=== PATIENT | male | born 1955 | race African-American/Black ===

== ENCOUNTER 2018-02-27 13:39 | Inpatient (IN) | payer MEDICARE, OTHER ==
[2018-02-27 14:25] LABS: Hemoglobin 14.6 g/dL (14.0-18.0); Mean Corpuscular HGB CONC 30.9 g/dL (32.0-36.0); Mean Corpuscular Hemoglobin 22.8 pg (27.0-31.0); Mean Corpuscular Volume 73.7 fl (80.0-94.0); Mean Platelet Volume 8.5 fL (7.4-10.4); Platelet Count 197 thou/uL (130-400); RBC Distribution Width 12.6 % (11.5-14.5); Red Blood Cell (RBC) Count 6.42 mill/uL (4.70-6.10)
[2018-02-27] MEDS ORDERED: Lorazepam 2 MG/ML VIAL ONE ×4 (14:29→17:13)
[2018-02-27 14:42] LABS: ALT (SGPT) 10 U/L (8-55); AST (SGOT) 21 U/L (5-34); Albumin 3.8 g/dL (3.4-4.8); Alkaline Phosphatase 138 U/L (40-150); Anion Gap 14 mmol/L (10-20); BUN (Urea Nitrogen) 10 mg/dL (8.4-25.7); Bilirubin, Total 1.2 mg/dL (0.2-1.2); Calc. Creatinine Clearance 0 mL/min (70-130); Calcium 10.5 mg/dL (7.8-10.44); Carbon Dioxide 22 mmol/L (23-31); Chloride 107 mmol/L (98-107); Estimated GFR-MDRD Greater than 90; Globulin 3.4 g/dL (2.4-3.5); Glucose 95 mg/dL (80-115); Lipase 10 U/L (8-78); Magnesium 1.4 mg/dL (1.6-2.6); Potassium 3.8 mmol/L (3.5-5.1); Protein, Total 7.2 g/dL (5.8-8.1); Sodium 139 mmol/L (136-145)
[2018-02-27 14:44] LABS: Eosinophils 1 % (0-10); Hypochromia SLIGHT = 6-15 cells (100X) (0-5/hpf); Lymphocytes 22 % (21-51); MDiff Complete? YES; Microcytosis SLIGHT = 6-15 cells (100X) (0-5/hpf); Monocytes 9 % (0-10); Neutrophil 68 % (42-75); Ovalocytes SLIGHT = 2-5 cells (100X) (0-1/hpf); PLT Morphology Comment Appears Adequate; Polychromasia SLIGHT = 2-3 cells (100X) (0-2/hpf); Target Cells SLIGHT = 2-5 cells (100X) (0-1/hpf)
[2018-02-27 14:56] LABS: CKMB 1.7 ng/mL (0-6.6); Troponin I 0.028 ng/mL (< 0.028)
--- NOTE | 2018-02-27 15:00 | RAD ---
PORTABLE CHEST: History: Chest pain, weakness. Comparison: 04-18-14 FINDINGS: Heart size appears borderline for portable technique. The lungs are clear of any focal infiltrative p rocess. IMPRESSION: Borderline heart size. No acute process. POS: [facility]
[2018-02-27] MEDS ORDERED: Magnesium Sulfate 2 GM/100 ML BAG ONE (15:11)
[2018-02-27] MEDS ORDERED: Diltiazem HCl 125 MG, Admixture Fee 1 EACH in Sodium Chloride 0.9% 100 ML IVPB SCH (17:15)
[2018-02-27] MEDS ORDERED: Albuterol Sulfate 2.5 mg/0.5 ml Neb ONE (17:36)
--- NOTE | 2018-02-27 19:52 | PDOC.FPRHP ---
- History of Present Illness Chief Complaint: unable to obtain History of Present Illness: Resident: Zeina Watkins DO PCP: unknown, CC Patient is a 62yo M with unknown PMH presented to the ED after using cocaine yesterday. History is limited due to patients sedation and limited info from ED. Apparently, patient is trying to become sober from drugs and distant family members are helping him with this. When he arrived to the ED, patient's HR was in the 130's and was given Ativan and IVF, which did not change the HR, actually HR escalated into the 270's over some time. Patient was cardioverted and placed on a diltiazem drip. Patient is s/p 5mg Ativan and is unable to answer questions at this time. ED Course: As discussed above, patient was carrdioverted and placed on diltiazem drip, going in at 10mg/hr at the time of evaluation. He was also given 1L NS, 2gm of Mg, and an albuterol neb. - Allergies/Adverse Reactions Allergies Allergy/AdvReac Type Severity Reaction Status Date / Time No Known Allergies Allergy Verified 02/27/18 22:11 - Home Medications Comments: unknown - History PMHx: HTN HLD Schizophrenia Substance Abuse ? Afib PSHx: unk FHx: unk Social: Patient uses tobacco and cocaine. Unable to determine other social hx. - Review of Systems ROS unobtainable: due to mental status - Vital signs BP: 127/90 HR: 89 RR: 24 Tmax: 98.5 Pox: 100% on RA Wt: 68kg - Physical Exam -Constitutional: drowsy, sedated HEENT: no scleral icterus -HEENT: pinpoint pupils Neck: no LAD Heart: normal S1/S2 -Heart: tachycardia, irregularly irregular Lungs: CTAB, no respiratory distress -Lungs: shallow respirations, unable to auscultate with full air movement Abdomen: soft, non-tender, bowel sounds present Musculoskeletal: normal structure, normal tone -Neurological: GCS 8 (eye-1, verbal-2, motor-5) Skin: no rash/lesions, good turgor Heme/Lymphatic: no unusual bruising or bleeding, no purpura, no petechia FMR H&P: Results - Labs Result Diagrams: 02/27/18 14:16 02/27/18 14:16 Lab results: WBC 6.0 thou/uL (4.8-10.8) 02/27/18 14:16 Hgb 14.6 g/dL (14.0-18.0) 02/27/18 14:16 Hct 47.3 % (42.0-52.0) 02/27/18 14:16 MCV 73.7 fl (80.0-94.0) L 02/27/18 14:16 Plt Count 197 thou/uL (130-400) 02/27/18 14:16 Sodium 139 mmol/L (136-145) 02/27/18 14:16 Potassium 3.8 mmol/L (3.5-5.1) 02/27/18 14:16 Chloride 107 mmol/L (98-107) 02/27/18 14:16 Carbon Dioxide 22 mmol/L (23-31) L 02/27/18 14:16 BUN 10 mg/dL (8.4-25.7) 02/27/18 14:16 Creatinine 0.74 mg/dL (0.6-1.3) 02/27/18 14:16 Glucose 95 mg/dL (80-115) 02/27/18 14:16 Calcium 10.5 mg/dL (7.8-10.44) H 02/27/18 14:16 Total Bilirubin 1.2 mg/dL (0.2-1.2) 02/27/18 14:16 AST 21 U/L (5-34) 02/27/18 14:16 ALT 10 U/L (8-55) 02/27/18 14:16 Alkaline Phosphatase 138 U/L (40-150) 02/27/18 14:16 CK-MB (CK-2) 1.7 ng/mL (0-6.6) 02/27/18 14:16 Serum Total Protein 7.2 g/dL (5.8-8.1) 02/27/18 14:16 Albumin 3.8 g/dL (3.4-4.8) 02/27/18 14:16 Lipase 10 U/L (8-78) 02/27/18 14:16 - EKG Interpretation EKG: initial EKG Aflutter with rate of 130's second EKG with Aflutter vs SVT with rate of 230's third EKG with Afib with rate of 140's - Radiology Interpretation Chest x-ray Status: image reviewed by me, report reviewed by me Additional comment: borderline heart size, no acute findings FMR H&P: A/P - Problem List (1) Atrial fibrillation with RVR Current Visit: Yes Status: Acute Code(s): I48.91 - UNSPECIFIED ATRIAL FIBRILLATION (2) Cocaine abuse Current Visit: Yes Status: Acute Code(s): F14.10 - COCAINE ABUSE, UNCOMPLICATED (3) Hypomagnesemia Current Visit: Yes Status: Acute Code(s): E83.42 - HYPOMAGNESEMIA (4) Hypercalcemia Current Visit: Yes Status: Acute Code(s): E83.52 - HYPERCALCEMIA (5) Low TSH level Current Visit: Yes Status: Acute Code(s): R79.89 - OTHER SPECIFIED ABNORMAL FINDINGS OF BLOOD CHEMISTRY (6) Tobacco abuse Current Visit: Yes Status: Acute Code(s): Z72.0 - TOBACCO USE (7) Hypertension Current Visit: Yes Status: Acute Code(s): I10 - ESSENTIAL (PRIMARY) HYPERTENSION (8) Hyperlipidemia Current Visit: Yes Status: Acute Code(s): E78.5 - HYPERLIPIDEMIA, UNSPECIFIED (9) Schizophrenia Current Visit: Yes Status: Acute Code(s): F20.9 - SCHIZOPHRENIA, UNSPECIFIED (10) Microcytosis Current Visit: Yes Status: Acute Code(s): R71.8 - OTHER ABNORMALITY OF RED BLOOD CELLS - Plan Afib with RVR - s/p cardioversion in ED. Currently pulse rate between high 80's to 100's on diltiazem drip. Admit to IMCU on telemetry. - hx is limited due to patients sedation with Ativan, GCS 8 - per family member, had an old medication list from 2016 that mentioned warfarin, so likely this is a chronic problem - Coags pending - Place on therapeutic lovenox and bridge to Warfarin, unknown hx, unable to calculate [id number] or HASBLED - cause could by hyperthyroidism vs cocaine intoxication, will obtain more hx when patient wakes up some Cocaine Abuse - UDS pending - CM consult Hypercalcemia - urine Ca pending - repeat tomorrow - consider PTH Hypomagnesemia - s/p 2g in ED - will recheck in AM and replace if needed - Phos pending Microcytosis - no anemia at this time - smear shows hypochromia with target cells, microcytosis, and ovalocytes - unknown cause, continue to monitor Low TSH - free T4 pending - unknown history, will get more information once patient is more alert to provide history Hx of Schizophrenia - no medication history that i'm able to obtain - will discuss with patient once more alert - continue to monitor for s/sx HTN - per history has HTN - no record of current medications - continue to monitor for s/sx HLD - as above VTE PPx: therapuetic lovenox GI PPx: none Code Status: Full Disposition/LOS: Likely >48h for warfarin bridging and further workup. FMR H&P: Upper Level - Pertinent history Pt is a 62 yo BM w/ PMH of cocaine abuse, presumably afib due to reported hx of coumadin use, htn, hld who presents to ED with elevated heart rate per ED BARGE MASTER. Pt is completely sedated at time of our exam and AOx0, only mumbles doesn't answer any questions. Reported that he had used used cocaine this morning. Initially found to be in 2:1 aflutter with RVR and during time in ED HR climbed to 238 in a difficult to read rhythm possible aflutter vs SVT, pt was cardioverted after administration of ativan. Post conversion EKG shows afib with RVR rate of 143. Pt was then started on a dilt gtt @ a rate of 10 and HR now in 90s. - Pertinent findings Gen: AOx0, sedated, VSS, mumbles, not easily arousable HEENT: mildly dry mm Cards: irregularly irregular Lungs: CTA Abdomen: non TTP, no distension, no guarding or peritoneal signs Skin: no rashes - Plan Date/Time: 02/27/181951 ISocorro, have evaluated this patient and agree with findings/plan as outlined by Dr. Watkins. Pertinent changes/additions are listed here. PCP: unknown CC 1. afib with RVR s/p cardioversion: admit IMCU, dilt gtt, th. lovenox, coags-- not sure if he was taking his coumadin, will need more hx about his cardiac hx when he is awake in terms of recent cath, hx of CAD, hx of chronic or pAF 2. cocaine abuse-tele monitoring, given ativan, will watch HR, UDS ordered and pending 3. hx of schizophrenia-dont have med list, not sure if he is on anything 4. htn-same 5. hld-same 6. DVT ppx-covered with Th. justox Attending Addendum - Attending Addendum Date/Time: 02/28/18 0358 I personally evaluated the patient and discussed the management with Dr. Watkins and Deangelo. I agree with the History, Examination, Assessment and Plan documented above with any addition or exceptions noted below.
[2018-02-27] MEDS ORDERED: Albuterol Sulfate 2.5 mg/3 ml Neb NEB PRN (19:56)
[2018-02-27] MEDS ORDERED: Ondansetron ODT 4 MG TAB PO PRN (20:14)
[2018-02-27] MEDS ORDERED: Acetaminophen 325 MG TAB PO PRN (20:14)
[2018-02-27] MEDS ORDERED: Enoxaparin Sodium 60 MG/0.6 ML SYRINGE SC SCH (21:00)
[2018-02-27 21:16] LABS: Troponin I 0.028 ng/mL (< 0.028)
[2018-02-27] MEDS: Sodium Chloride 0.9% 1,000 ML IV SCH (21:45)
[2018-02-27 21:55] LABS: INR-International Normal Ratio 1.1; PTT 28.9 SEC (22.9-36.1); Prothrombin Time 14.5 SEC (12.0-14.7)
--- NOTE | 2018-02-27 22:00 | PDOC.EVN ---
Event Note - Event Note Event Note: Date/Time: 02/27/18 6410 I personally evaluated the patient and discussed the management with Drs. Watkins and Deangelo. I agree with the History, Examination, Assessment and Plan. See H&P.
[2018-02-28] MEDS: Diltiazem 125 MG in Sodium Chloride 0.9% 100 ML IVPB SCH (02:01)
[2018-02-28 05:20] LABS: #Basophils 0.1 thou/uL (0.0-0.2); #Lymphocytes 1.5 thou/uL (1.20-3.40); #Monocytes 0.8 thou/uL (0.11-0.59); #Neutrophils 5.2 thou/uL (1.40-6.50); %Basophils 0.7 % (0.0-1.0); %Eosinophils 0.1 % (0.0-10.0); %Lymphocytes 19.9 % (21.0-51.0); %Monocytes 10.9 % (0.0-10.0); %Neutrophils 68.4 % (42.0-75.0); Mean Corpuscular HGB CONC 32.3 g/dL (32.0-36.0); Mean Corpuscular Hemoglobin 23.5 pg (27.0-31.0); Mean Corpuscular Volume 72.9 fL (78.0-98.0); Platelet Count 219 thou/uL (130-400); RBC Distribution Width 12.6 % (11.5-14.5); Red Blood Cell (RBC) Count 5.09 mill/uL (4.70-6.10); White Blood Cell (WBC) Count 7.6 thou/uL (4.8-10.8)
[2018-02-28 05:39] LABS: Anion Gap 14 mmol/L (10-20); BUN (Urea Nitrogen) 8 mg/dL (8.4-25.7); Calc. Creatinine Clearance 110 mL/min (70-130); Calcium 9.7 mg/dL (7.8-10.44); Carbon Dioxide 18 mmol/L (23-31); Cardiac Risk 3.8 (Less than 4.5); Chloride 112 mmol/L (98-107); Cholesterol 100 mg/dl (< 200 Desired); Estimated GFR-MDRD Greater than 90; Glucose 94 mg/dL (80-115); HDL Cholesterol 26 mg/dL (>60 Neg Risk); LDL Cholesterol, Calculated 63 mg/dL; Magnesium 1.5 mg/dL (1.6-2.6); Potassium 3.9 mmol/L (3.5-5.1); Sodium 140 mmol/L (136-145); Triglycerides 53 mg/dL (Less than 150)
[2018-02-28] MEDS: Sodium Chloride 0.9% 1,000 ML IV SCH (05:59)
--- NOTE | 2018-02-28 08:10 | PDOC.FM ---
- Subjective Subjective: 62 yo M who was admitted after being found to be in afib with RVR now NSR on dilt drip. There is very little history about this case dt lack of family/ friends and patient's ability to answer questions after being given ativan. This morning he is found to be sleeping comfortably. He will intermittently answer questions. He denies any concerns. Per nursing, he has been very agitated , is pulling at his lines and monitors, and is being generally non compliant. - Objective MAR Reviewed: Yes Vital Signs & Weight: Vital Signs (12 hours) Temp Pulse Resp BP Pulse Ox 02/28/18 07:32 99.0 F 88 18 97 02/28/18 03:48 99.0 F 104 H 18 169/90 H 98 02/28/18 00:00 98.6 F 100 19 172/91 H 97 Weight Weight 67.188 kg I&O: 02/27/18 02/28/18 03/01/18 06:59 06:59 06:59 Intake Total 1120 Balance 1120 Result Diagrams: 02/28/18 04:48 02/28/18 04:48 <Harshil Edgar - Last Filed: 02/28/18 07:56> - Objective Vital Signs & Weight: Vital Signs (12 hours) Temp Pulse Resp BP Pulse Ox 02/28/18 11:49 98.4 F 117 H 34 H 188/99 H 02/28/18 11:30 112 H 02/28/18 07:32 99.0 F 88 18 97 02/28/18 03:48 99.0 F 104 H 18 169/90 H 98 Weight Weight 67.188 kg I&O: 02/27/18 02/28/18 03/01/18 06:59 06:59 06:59 Intake Total 1120 Balance 1120 Result Diagrams: 02/28/18 04:48 02/28/18 04:48 <Debra Gill - Last Filed: 02/28/18 12:08> Phys Exam - Physical Examination Constitutional: NAD HEENT: moist MMs, sclera anicteric Neck: no JVD Respiratory: clear to auscultation bilateral Cardiovascular: RRR Non radiating 3/6 systolic murmur heard best over R sternal border Gastrointestinal: soft, non-tender, no distention, positive bowel sounds Musculoskeletal: no edema Neurological: moves all 4 limbs Deviation from normal: Will not answer most questions, sedated dt ativan Skin: no rash, normal turgor <Harshil Edgar - Last Filed: 02/28/18 07:56> Dx/Plan (1) Atrial fibrillation with RVR Code(s): I48.91 - UNSPECIFIED ATRIAL FIBRILLATION Status: Acute (2) Cocaine abuse Code(s): F14.10 - COCAINE ABUSE, UNCOMPLICATED Status: Acute (3) Hypercalcemia Code(s): E83.52 - HYPERCALCEMIA Status: Acute (4) Hyperlipidemia Code(s): E78.5 - HYPERLIPIDEMIA, UNSPECIFIED Status: Acute (5) Hypertension Code(s): I10 - ESSENTIAL (PRIMARY) HYPERTENSION Status: Acute (6) Hypomagnesemia Code(s): E83.42 - HYPOMAGNESEMIA Status: Acute (7) Low TSH level Code(s): R79.89 - OTHER SPECIFIED ABNORMAL FINDINGS OF BLOOD CHEMISTRY Status : Acute (8) Microcytosis Code(s): R71.8 - OTHER ABNORMALITY OF RED BLOOD CELLS Status: Acute (9) Schizophrenia Code(s): F20.9 - SCHIZOPHRENIA, UNSPECIFIED Status: Acute (10) Tobacco abuse Code(s): Z72.0 - TOBACCO USE Status: Acute (11) Systolic murmur Code(s): R01.1 - CARDIAC MURMUR, UNSPECIFIED Status: Acute - Plan Plan: Afib with RVR - s/p cardioversion in ED. Currently pulse rate between high 80's to 100's on diltiazem drip. Currently at 5 mg/hr - history is still unclear, will attempt to find family today. Will also limit sedative use today in to get more information from pt. - per family member, had an old medication list from 2016 that mentioned warfarin, so likely this is a chronic problem. INR is 1.1, thus likely he is not taking it currently - Place on therapeutic lovenox and bridge to Warfarin, unknown hx, unable to calculate [id number] or HASBLED - likely caused by both hyperthyroid and cocaine intoxication. Free T4 4.1, UDS pending Systolic murmur - unclear if this is new or old. When pt wakes up more, will get more history and consider further work up at that time Cocaine Abuse - UDS pending - CM consult Hypercalcemia - improved this morning - urine Ca pending - repeat tomorrow - consider PTH based on urine study Hypomagnesemia - s/p 2g in ED. giving one more this am - repeat tomorrow - Phos WNL Microcytic anemia - unclear if dilutional or if value on admission was concentration - order Fe studies - smear shows hypochromia with target cells, microcytosis, and ovalocytes - unknown cause, continue to monitor Low TSH - free T4 4.1 - unknown history, will get more information once patient is more alert to provide history Hx of Schizophrenia, per ER - will discuss with patient once more alert - continue to monitor for s/sx HTN - per history in ED has HTN - no record of current medications - continue to monitor for s/sx HLD - as above Dispo: currently stable. Work to move to IV rate control when pt is more awake. Likely LOS 1-2 days <Harshil Edgar - Last Filed: 02/28/18 07:56> Attending Addendum - Attending Addendum Date/Time: 02/28/18 1202 I personally evaluated the patient and discussed the management with Dr. Mcgovern and Dr. Edgar I agree with the History, Examination, Assessment and Plan documented above with any addition or exceptions noted below. 62 yo male with unknown history admitted for cocaine toxicosis and A. fib with RVR Patient cardioverted in ER. Now on CCB drip. Will contact cards this AM. Symptomatic treatment for cocaine tox. Significant effects to cardiovascular system still at great risk. Unsure if patient has primary hyperthyroidism or has history of A. fib and was potientially on amiodarone. Will follow up with family or pharmacy. Check [facility]. ABrayMD <Debra Gill - Last Filed: 02/28/18 12:08>
[2018-02-28] MEDS ORDERED: Enoxaparin Sodium 80 MG/0.8 ML SYRINGE SC SCH (09:00)
[2018-02-28] MEDS ORDERED: Enoxaparin Sodium 40 MG/0.4 ML SYRINGE SC SCH (09:00)
[2018-02-28 09:14] LABS: Iron 25 ug/dL (65-175); Iron Binding Capacity, Total 180 mcg/dL (261-462)
[2018-02-28] MEDS ORDERED: Digoxin 0.5 MG/2 ML AMP SLOW IVP SCH (10:30)
[2018-02-28] MEDS ORDERED: Ziprasidone 20 MG VIAL IM PRN (10:59)
[2018-02-28] MEDS ORDERED: Sterile Water 10 ML VIAL FS PRN (11:09)
[2018-02-28] MEDS: Haloperidol Lactate 5 MG/ML VIAL SLOW IVP PRN ×2 (12:41→17:03)
[2018-02-28] MEDS ORDERED: hydrOXYzine 25 MG TAB PO PRN (17:47)
[2018-02-28] MEDS ORDERED: Methocarbamol 500 MG TAB PO PRN (17:47)
[2018-02-28] MEDS ORDERED: (Sildenafil Citrate [Viagra] 100 MG) PO PRN (17:47)
[2018-02-28] MEDS ORDERED: PROVENTIL INHALER 6.7 G (200 INHALATIONS) INH PRN (17:47)
--- NOTE | 2018-02-28 19:13 | CON ---
DATE OF CONSULTATION: 02/28/2018 HISTORY OF PRESENT ILLNESS: Tony Bradley is a very irritable 62-year-old gentleman. I was able to interview him for a short period of time, but really does not want to be talk to. He has a long history apparently of schizophrenia , according to family, as well as medical noncompliance. Family member called and says that he continues to smoke cocaine with some people that live in his neighborhood and then once he starts smoking cocaine, he gives them his money. I believe, the sister that plans on trying to take care of him, although I am not sure he is going to be open to this. Apparently, he presented with rapid atrial fibrillation. He did receive cardioversion in the ER, although it is unknown how long he has been in this rhythm. He also received either 5 or 6 mg of Ativan in the emergency department. PAST MEDICAL HISTORY: Remarkable for hypertension, schizophrenia, ?atrial fibrillation. FAMILY HISTORY: Negative for lung disease in early age. REVIEW OF SYSTEMS: Not obtainable because of his lack of cooperation. He has pulled out 4 or 5 IVs since he was admitted. PHYSICAL EXAMINATION: VITAL SIGNS: He is afebrile, heart rates in the 120s and I saw him earlier it is down to the 110s now. His respiratory rate is in the 20s to 30s. His room air oximetry is 97. Blood pressure is 169/90 earlier this morning 188/99 just before lunch. LUNGS: Clear. HEART: Irregularly irregular. No murmurs heard. ABDOMEN: Soft and nontender. EXTREMITIES: Without asymmetry. He has a foam tape over his IV in his left upper extremity to hopefully keep him from pulling out his IV. LABORATORY DATA: His white count is 7.6, hemoglobin 12.0, platelets 219. Sodium 140, potassium 3.9, chloride 112, bicarbonate 18, BUN 8, creatinine 0.66. Given his history of schizophrenia, he may benefit from some IV Haldol to calm him down. This was ordered. He will not tolerate an IM injection and likely a nurse will end up getting stuck with a needle, so this will be given intravenously. We will start him on every 6 hours p.o. Cardizem and I have given him 0.5 mg of digoxin IV. Hopefully, we can get him off his Cardizem drip and get him into his sister's custody if she is willing to take care of him. Really should have schizophrenia treated with some type of Depo injection if he can be confirmed he truly does have a history of schizophrenia. [facility] consultation may be helpful. I will be happy to follow with the other physician's caring for him. This is a 50-minute consult greater than 50% of the time was spent in coordinating care. THANH
[2018-02-28] MEDS ORDERED: Acetaminophen 650 MG in Premix Bag 1 BAG IVPB PRN (19:26)
--- NOTE | 2018-02-28 21:19 | CON ---
DATE OF CONSULTATION: 02/28/2018 PRIMARY WEB SITE MANAGER: Dr. Roosevelt Bragg. REASON FOR CONSULTATION: Atrial flutter and atrial fibrillation. HISTORY OF PRESENT ILLNESS: Mr. Tony Bradley is a 62-year-old man. The patient has a history of va lvular heart disease as well as substance abuse, admitted to the hospital yesterday after using cocai ne. The patient is unable to give a reliable history. According to the notes, the patient also has problem with severe tachycardia, heart rate (01:02 ). He was cardioverted and placed on diltiazem drip. He also required Ativan and Haldol. REVIEW OF SYSTEMS: Not reliable as he is currently sedated. He is not cooperative and required bianca tion and the patient is stating he is about to leave. The patient has a history of atrial flutter an d atrial fibrillation and in the past has been on Coumadin. RISK FACTORS: 1. Dyslipidemia. 2. Family history of coronary artery disease. 3. Type 2 diabetes. 4. Hypertension. 5. Former tobacco abuse. Also, history of cocaine abuse. 6. Patient has a history of atrial flutter ablation in 2009. CURRENT MEDICATIONS: He was on intravenous Cardizem, but he will not allow that to be continued. He is on oral Cardizem. He has taken intermittently. PHYSICAL EXAMINATION: GENERAL: This is a 62-year-old man currently sedated. VITAL SIGNS: Blood pressure 188/99, pulse of 117, irregular. LUNGS: Clear. CARDIAC: Irregularly irregular. He has a 3/6 holosystolic murmur at the apex. ABDOMEN: Soft, nontender. EXTREMITIES: There is no clubbing, no cyanosis or edema. PSYCHIATRIC: Sedated. LABORATORY AND X-RAY FINDINGS: Hemoglobin is 12. INR is 1.1. The patient did have episode of atria l flutter with a rapid ventricular response, rate of 238 yesterday. Most recent ejection fraction 40 to 45%, left ventricular hypertrophy, severe mitral regurgitation. ASSESSMENT: 1. Severe mitral regurgitation. 2. Substance abuse. 3. Noncompliance. 4. Cocaine abuse. 5. Recurrent atrial arrhythmias. PLAN: Unfortunately, the patient's prognosis appears poor as he is not cooperative with medical ther apy. It has been mentioned that was referred at one point for bypass and valve repair, but did not s how up for that. The patient is not a candidate for anticoagulations with severe noncompliance. The risk of anticoagulation would be very high. I would recommend giving him Cardizem-CD 180 mg a day i f he leaves against medical advice. If he stays in the hospital, I would recommend electrophysiologic evaluation by Dr. Fox to see [facility] pascual atrial flutter ablation could be considered.
[2018-02-28] MEDS: Pravastatin Sodium 20 MG TAB PO SCH (21:40)
[2018-02-28] MEDS: Ferrous Sulfate 325 MG TAB PO SCH (21:40)
[2018-03-01] MEDS ORDERED: Diazepam 5 MG TAB PO PRN (00:46)
[2018-03-01] MEDS ORDERED: Diazepam 5 MG TAB PO SCH (01:00)
[2018-03-01] MEDS ORDERED: Thiamine HCl 200 MG/2 ML VIAL IM SCH (01:00)
[2018-03-01] MEDS: Diltiazem 125 MG in Sodium Chloride 0.9% 100 ML IVPB SCH (03:19)
[2018-03-01 05:30] LABS: #Lymphocytes 1.4 thou/uL (1.20-3.40); #Monocytes 0.9 thou/uL (0.11-0.59); #Neutrophils 4.6 thou/uL (1.40-6.50); %Eosinophils 0.6 % (0.0-10.0); %Lymphocytes 20.6 % (21.0-51.0); %Neutrophils 65.9 % (42.0-75.0); Hemoglobin 11.4 g/dL (14.0-18.0); Mean Corpuscular HGB CONC 31.5 g/dL (32.0-36.0); Mean Corpuscular Hemoglobin 23.2 pg (27.0-31.0); Mean Corpuscular Volume 73.6 fL (78.0-98.0); Mean Platelet Volume 8.8 fL (7.4-10.4); Platelet Count 169 thou/uL (130-400); RBC Distribution Width 12.6 % (11.5-14.5); Red Blood Cell (RBC) Count 4.91 mill/uL (4.70-6.10); White Blood Cell (WBC) Count 6.9 thou/uL (4.8-10.8)
[2018-03-01 05:36] LABS: Anion Gap 16 mmol/L (10-20); BUN (Urea Nitrogen) 9 mg/dL (8.4-25.7); Calc. Creatinine Clearance 125 mL/min (70-130); Calcium 9.5 mg/dL (7.8-10.44); Carbon Dioxide 17 mmol/L (23-31); Chloride 113 mmol/L (98-107); Estimated GFR-MDRD Greater than 90; Glucose 71 mg/dL (80-115); Potassium 3.7 mmol/L (3.5-5.1); Sodium 142 mmol/L (136-145)
[2018-03-01 06:14] LABS: Bilirubin Negative (Negative); Blood, Urine Negative (Negative); Clarity CLEAR (Clear); Glucose, Urine (Dipstick) Negative (Negative); Leukocyte Negative (Negative); Nitrite Negative (Negative); Protein, Urine (Dipstick) Trace mg/dL (Neg-Trace); Specific Gravity, Urine 1.021 (1.002-1.036); pH, Urine 5.5 (5.0-9.0)
[2018-03-01 06:25] LABS: Amphetamine Not Detected (NotDetected); Barbiturates Screen Not Detected (NotDetected); Benzodiazepine Screen Detected (NotDetected); Cocaine Metabolite Screen Detected (NotDetected); Medtox Control Line Valid? VALID (VALID); Medtox Reader # READER 4; Methadone Not Detected (NotDetected); Methamphetamine Not Detected (NotDetected); Opiate Screen Not Detected (NotDetected); Oxycodone Screen Not Detected (NotDetected); Phencyclidine (PCP) Not Detected (NotDetected); THC/Cannabinoid Screen Detected (NotDetected); Tricyclic Screen Not Detected (NotDetected)
--- NOTE | 2018-03-01 08:28 | PDOC.FM ---
- Subjective Subjective: 62 yo M here for afib/flutter. Rate is controlled on cardizem drip. Hospitalization has been complicated by uncontrolled schizophrenia. He is has been very non compliant and is refusing all PO meds. Over night pt slept well with no issues per nursing after receiving dose of haldol. This morning pt was asleep and would not answer questions. - Objective MAR Reviewed: Yes Vital Signs & Weight: Vital Signs (12 hours) Temp Pulse Resp BP Pulse Ox 03/01/18 07:40 97.4 F L 98 17 138/88 99 03/01/18 04:00 97.6 F 97 28 H 152/89 H 100 03/01/18 00:00 97.4 F L 93 27 H 143/78 H 100 Weight Weight 67.188 kg I&O: 02/28/18 03/01/18 03/02/18 06:59 06:59 06:59 Intake Total 1120 1480 Output Total 1000 Balance 1120 480 Result Diagrams: 03/01/18 04:12 03/01/18 04:12 <Harshil Edgar - Last Filed: 03/01/18 08:24> - Objective Vital Signs & Weight: Vital Signs (12 hours) Temp Pulse Resp BP BP Pulse Ox 03/01/18 15:22 98.8 F 98 20 134/78 97 03/01/18 11:16 97.6 F 104 H 20 132/70 100 03/01/18 10:00 193/99 H 03/01/18 08:00 97.6 F 104 H 20 95 03/01/18 07:40 97.4 F L 98 17 138/88 99 03/01/18 04:00 97.6 F 97 28 H 152/89 H 100 Weight Weight 67.188 kg I&O: 02/28/18 03/01/18 03/02/18 06:59 06:59 06:59 Intake Total 1120 1480 Output Total 1000 Balance 1120 480 Result Diagrams: 03/01/18 04:12 03/01/18 04:12 <Debra Gill - Last Filed: 03/01/18 15:43> Phys Exam - Physical Examination Constitutional: NAD HEENT: moist MMs Neck: no JVD Respiratory: clear to auscultation bilateral irregularly irregular with systolic murmur. Gastrointestinal: soft, non-tender, no distention, positive bowel sounds Musculoskeletal: no edema, pulses present Neurological: non-focal, normal sensation, moves all 4 limbs Psychiatric: normal affect, A&O x 3 Skin: no rash, normal turgor <Harshil Edgar - Last Filed: 03/01/18 08:24> Dx/Plan (1) Atrial fibrillation with RVR Code(s): I48.91 - UNSPECIFIED ATRIAL FIBRILLATION Status: Acute (2) Cocaine abuse Code(s): F14.10 - COCAINE ABUSE, UNCOMPLICATED Status: Acute (3) Hypercalcemia Code(s): E83.52 - HYPERCALCEMIA Status: Acute (4) Hyperlipidemia Code(s): E78.5 - HYPERLIPIDEMIA, UNSPECIFIED Status: Acute (5) Hypertension Code(s): I10 - ESSENTIAL (PRIMARY) HYPERTENSION Status: Acute (6) Hypomagnesemia Code(s): E83.42 - HYPOMAGNESEMIA Status: Acute (7) Low TSH level Code(s): R79.89 - OTHER SPECIFIED ABNORMAL FINDINGS OF BLOOD CHEMISTRY Status : Acute (8) Microcytosis Code(s): R71.8 - OTHER ABNORMALITY OF RED BLOOD CELLS Status: Acute (9) Schizophrenia Code(s): F20.9 - SCHIZOPHRENIA, UNSPECIFIED Status: Acute (10) Tobacco abuse Code(s): Z72.0 - TOBACCO USE Status: Acute (11) Systolic murmur Code(s): R01.1 - CARDIAC MURMUR, UNSPECIFIED Status: Acute (12) CAD (coronary artery disease) Code(s): I25.10 - ATHSCL HEART DISEASE OF [place] CORONARY ARTERY W/O ANG PCTRS Status: Acute (13) Mitral regurgitation Status: Chronic - Plan Plan: Afib with RVR - s/p cardioversion in ED. Currently pulse rate between high 80's to 100's on diltiazem drip and irregularly irregular. Currently at 10 mg/hr - Per family this has happened in the past whenever pt goes off of psych meds, he typically restarts cocaine and is hospitalized. - Cardiology has been consulted who recommends EP evaluation. This patient is very unreliable and any medical management is likely to fail due to noncompliance. - Pt is poor anticoagulation candidate dt non compliance - likely caused by both hyperthyroid and cocaine intoxication. Free T4 4.1, UDS pending CAD - pt has previously diagnosed 2vv disease. It was previously recommended that he have a CABG, however was lost to follow up. Systolic murmur 2/2 severe mitral prolapse - pt has known disease and has been recommended for mitral repair in the past Cocaine Abuse - CM consult, it has been apprx 3 days since last use Hypercalcemia - resolved Hypomagnesemia - level pending, will replace if indicated Microcytic anemia - stable - Fe studies c/w anemia of chronic disease Low TSH - free T4 4.1, T3 9.62 - appears to be primary hyperthyroid. Thyrotropin receptor antibody Schizophrenia - med list has been given to us by family, home meds have been restarted - will consult [facility] when medically stable. This patient has a long history of noncompliance and given his cardiac comorbidities this places him in a potentially dangerous situation HTN - restart home meds HLD - home meds Dispo: currently stable. Length of stay 2-3 days pending further cardiac evaluation. Home vs inpatient psych facility <Harshil Edgar - Last Filed: 03/01/18 08:24> Attending Addendum - Attending Addendum Date/Time: 03/01/18 7488 I personally evaluated the patient and discussed the management with Dr. Mcgovern and Dr. Edgar I agree with the History, Examination, Assessment and Plan documented above with any addition or exceptions noted below. Cards following. Will consult EP today for further evaluation. Restarted antipsychotics for Schizophrenia. Patient has been more complaint. Substance use/abuse with cocaine toxicity slowly improving. Temp overnight. Cultures and infection workup pending. Possibly related to substance use. ABrayMD <Debra Gill - Last Filed: 03/01/18 15:43>
[2018-03-01] MEDS: Lisinopril 20 MG TAB PO SCH (10:00)
[2018-03-01] MEDS: Furosemide 40 MG TAB PO SCH (10:00)
[2018-03-01] MEDS: Aspirin 81 mg Enteric Coated Tablet PO SCH (10:01)
[2018-03-01] MEDS: Aripiprazole 10 MG TAB PO SCH (10:02)
[2018-03-01] MEDS: Ferrous Sulfate 325 MG TAB PO SCH ×3 (10:02→20:00)
[2018-03-01] MEDS: Tamsulosin HCl 0.4 MG CAP PO SCH (10:02)
[2018-03-01] MEDS: Potassium Chloride 20 MEQ TAB PO SCH ×3 (10:02→17:01)
[2018-03-01] MEDS: Folic Acid 1 MG TAB PO SCH (10:03)
[2018-03-01] MEDS: Multivitamin W/ Minerals 1 TAB PO SCH (10:03)
[2018-03-01] MEDS: OLANZapine 5 MG TAB PO SCH (10:03)
[2018-03-01] MEDS: Bupropion 100 MG SR TAB PO SCH (10:03)
[2018-03-01] MEDS ORDERED: Magnesium 2 GM/NS 0.9% 100 ML 2 GM in Premix Bag 1 BAG IVPB SCH (11:15)
--- NOTE | 2018-03-01 12:20 | PRG ---
DATE OF SERVICE: 03/01/2018 Mr. Bradley is afebrile, heart rate 104, blood pressure earlier was 192/99, respiratory is 20, oximet ry is 100%. He is intermittently more compliant with taking p.o. medications. He was off Cardizem and had to go back on IV Cardizem last night. LUNGS: His lungs are clear. HEART: Irregular. ABDOMEN: Abdomen is soft. When I saw him, his heart rate was 120. IMPRESSION: 1. Atrial fibrillation that is likely chronic. 2. Status post cardioversion attempt in the emergency room with no adverse sequela. 3. Anemia. 4. Hyperchloremia. 5. Cocaine use as well as marijuana use on the street. 6. Underlying schizophrenia on no medication. He is apparently noncompliant with his followups at the [facility]. He would probably benefit from regular f ollow up with [facility] locally, but he would probably be noncompliant with that as well. We will continue with berna Ybarra and try to get his atrial fib rate under control with p.o. medic ations, then he should be stable for discharge in my opinion.
--- NOTE | 2018-03-01 14:54 | ULT ---
THYROID ULTRASOUND: DATE: 03/01/18. COMPARISON: None. HISTORY: Hyperthyroidism, atrial fibrillation with rapid ventricular rate. TECHNIQUE: Multiplanar, pleitez scale, sonographic imaging of the thyroid gland obtained. FINDINGS: The thyroid gland is heterogeneous and enlarged, with an isthmus measuring 7 mm in AP dimension, righ t lobe measuring 4.2 x 2.2 x 1.4, and left lobe measuring 3.7 x 1.9 x 1.9 cm. No thyroid nodule iden tified. IMPRESSION: Heterogeneous enlarged thyroid gland with no discrete thyroid nodule noted. Grave's disease would be a possibility in the proper clinical scenario. POS: TYH
--- NOTE | 2018-03-01 18:45 | CON ---
DATE OF CONSULTATION: 03/01/2018 ELECTROPHYSIOLOGY CONSULTATION I am seeing Mr. 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 His problems are; 1. Persistent atrial fibrillation/atypical atrial flutter. A. Cardioversion in the ER. B. Remote history of atrial flutter ablation in 2009. 2. Valvular heart disease with severe MR on medical management. 3. History of ischemic cardiomyopathy. A. Poor LVEF at 40%-45%, LVH, and most recent echocardiogram on medical management ____. 4. History of schizophrenia. 5. History of persistent abuse including cocaine with current tox screen positive for benzo, cocaine and cannabis. 6. Risk factors including hypertension. MEDICATIONS AT HOME: Include methocarbamol, ____ bupropion, hydroxyzine, pravastatin, lisinopril, po tassium chloride, aripiprazole, sildenafil, olanzapine, pantoprazole, tamsulosin, ferrous sulfate, fu rosemide, aspirin. SUBJECTIVE: Mr. Bradley is a poor historian. Most of the history is obtained through chart and his nurse thought that this man has been obtaining his psychiatric and medical care, mostly in [place]. He is presenting here after cocaine use with main complaint of weakness. He was found to be in atrial f ibrillation/flutter with rapid rates. Eventually due to extreme tachycardia, a synchronized cardiove rsion was performed and Ativan was given for sedation. Eventually, he was in AFib in the end of the cardioversion with more controlled rate. Diltiazem drip was started. Patient has been poorly compliant even with the medications in the hospital. There is no acute histo ry of chest pains, dizziness, loss of consciousness. No fever, chills, cough, and rest of 12-point s ystem otherwise unremarkable. PAST MEDICAL HISTORY: As above. SOCIAL HISTORY: Polysubstance abuse. FAMILY HISTORY: Noncontributory. OBJECTIVE: VITAL SIGNS: Blood pressure is 130/88, heart rate 98, respiration 17, temperature 97.4 degrees Fahre nheit. GENERAL: He is alert and oriented man x2, in no apparent distress. NECK: Supple. Jugular veins not distended. CHEST: Coarse, no crackles. CARDIOVASCULAR: Heart sounds are irregularly irregular. S1, S2, variable. A 1-2/6 holosystolic mur mur is heard. PMI is slightly displaced. ABDOMEN: Benign. Bowel sounds positive. EXTREMITIES: Lower extremities without edema, clubbing or cyanosis. DATABASE: EKGs reviewed. Initial EKG reveals a very rapid atrial flutter/fibrillation with rates up to 138 beats per minute. Subsequent EKG reveals atrial fibrillation at 143 beats per minute. Subse quent EKGs reveal atrial fibrillation with better rate control on diltiazem. LABORATORY DATA: Again, tox panel with benzo, cocaine and cannabis positivity. White count 6.9, hem oglobin 11.4, platelet count is 169. INR 1.1. Sodium 142, potassium 3.7, BUN is 9 and creatinine 0. 58. Troponins are 0.028, 0.03, and 0.028. AST is 21, ALT is 10. TSH with elevated free T4 at 9.62 and free thyroxine of 4.1. TSH is suppressed at 0.0025. ASSESSMENT AND PLAN: Mr. Bradley is an unfortunate 62-year-old man with history of polysubstance abu se problem including cocaine as well as schizophrenia, significant valvular heart disease and cardiom yopathy as well to mild degree present. He is here with atrial fibrillation and flutter. He is curr ently better controlled with diltiazem therapy. The treatment options are extremely limited on this gentleman. Due noncompliance, medical therapy wi ll be likely difficult. He is a poor candidate for ablation therapy as well due to noncompliance wit h medication as well. I suspect stabilization from a psychotic standpoint, improving compliance, sta rting on diltiazem would be a most reasonable action. Amiodarone could have been considered, althoug h significant thyroid abnormality may make this drug currently not a good option. After optimization of thyroid levels, this could be considerable but although we will try a close followup as well. Valvular heart disease management as per Dr. Prado. Thank you again for allowing me to participate in the care of this patient.
[2018-03-01] MEDS: Haloperidol Lactate 5 MG/ML VIAL SLOW IVP PRN (19:58)
[2018-03-01] MEDS: Pravastatin Sodium 20 MG TAB PO SCH (20:02)
[2018-03-02] MEDS: Haloperidol Lactate 5 MG/ML VIAL SLOW IVP PRN ×2 (00:24→22:29)
[2018-03-02] MEDS: Diltiazem 125 MG in Sodium Chloride 0.9% 100 ML IVPB SCH (00:59)
[2018-03-02] MEDS ORDERED: Diazepam 5 MG TAB PO PRN (04:00)
--- NOTE | 2018-03-02 08:04 | PDOC.FM ---
- Subjective Subjective: 62 yo M here for afib/flutter. Pt has been much less agitated and cooperative over the past 24 hours. He still is confused at times, per nursing. There were no acute events over night. Pt has no specific complaints this morning and states that he is taking all of his meds because he wants to go home - Objective MAR Reviewed: Yes Vital Signs & Weight: Vital Signs (12 hours) Temp Pulse Resp BP Pulse Ox 03/02/18 04:00 98.7 F 87 16 133/79 98 03/02/18 00:00 99.2 F 90 18 143/72 H 100 Weight Weight 67.903 kg I&O: 03/01/18 03/02/18 03/03/18 06:59 06:59 06:59 Intake Total 1480 1520 Output Total 1000 Balance 480 1520 Result Diagrams: 03/01/18 04:12 03/01/18 04:12 <Harshil Edgar - Last Filed: 03/02/18 08:59> - Objective Vital Signs & Weight: Vital Signs (12 hours) Temp Pulse Resp BP BP Pulse Ox 03/02/18 11:32 98.0 F 75 24 H 125/64 97 03/02/18 11:31 81 120/67 03/02/18 09:17 120/67 03/02/18 08:04 101.0 F H 90 24 H 136/80 99 03/02/18 04:00 98.7 F 87 16 133/79 98 03/02/18 00:00 99.2 F 90 18 143/72 H 100 Weight Weight 67.903 kg I&O: 03/01/18 03/02/18 03/03/18 06:59 06:59 06:59 Intake Total 1480 1520 Output Total 1000 Balance 480 1520 Result Diagrams: 03/01/18 04:12 03/01/18 04:12 <Debra Gill - Last Filed: 03/02/18 11:40> Phys Exam - Physical Examination Constitutional: NAD HEENT: moist MMs, sclera anicteric Neck: no JVD, supple Respiratory: clear to auscultation bilateral irregularly irregular, 3/6 systolic murmur loudest at apex Gastrointestinal: soft, non-tender, no distention, positive bowel sounds Musculoskeletal: no edema Neurological: non-focal, moves all 4 limbs Psychiatric: A&O x 3 Deviation from normal: Slow to respond Skin: no rash, normal turgor <Harshil Edgar - Last Filed: 03/02/18 08:59> Dx/Plan (1) Atrial fibrillation with RVR Code(s): I48.91 - UNSPECIFIED ATRIAL FIBRILLATION Status: Acute (2) Hyperthyroidism Code(s): E05.90 - THYROTOXICOSIS, UNSP WITHOUT THYROTOXIC CRISIS OR STORM Status: Acute (3) Cocaine abuse Code(s): F14.10 - COCAINE ABUSE, UNCOMPLICATED Status: Acute (4) Hypercalcemia Code(s): E83.52 - HYPERCALCEMIA Status: Acute (5) Hyperlipidemia Code(s): E78.5 - HYPERLIPIDEMIA, UNSPECIFIED Status: Acute (6) Hypertension Code(s): I10 - ESSENTIAL (PRIMARY) HYPERTENSION Status: Acute (7) Hypomagnesemia Code(s): E83.42 - HYPOMAGNESEMIA Status: Acute (8) Low TSH level Code(s): R79.89 - OTHER SPECIFIED ABNORMAL FINDINGS OF BLOOD CHEMISTRY Status : Acute (9) Microcytosis Code(s): R71.8 - OTHER ABNORMALITY OF RED BLOOD CELLS Status: Acute (10) Schizophrenia Code(s): F20.9 - SCHIZOPHRENIA, UNSPECIFIED Status: Acute (11) Tobacco abuse Code(s): Z72.0 - TOBACCO USE Status: Acute (12) Systolic murmur Code(s): R01.1 - CARDIAC MURMUR, UNSPECIFIED Status: Acute (13) CAD (coronary artery disease) Code(s): I25.10 - ATHSCL HEART DISEASE OF [place] CORONARY ARTERY W/O ANG PCTRS Status: Acute (14) Mitral regurgitation Status: Chronic - Plan Plan: Afib with RVR - Pt is currently taking a total of 240mg of Cardizem PO and on a drip at 2.5. Will stop drip today and move out of [facility]. - Had discussion with family yesterday concerning care when patient is discharged. The current plan is to have patient discharge to his sister's house where he will live rather than living on his own. This is likely his best chance of staying on his meds - EP recommends only medical management - Pt is poor anticoagulation candidate dt non compliance - likely caused by both hyperthyroid and cocaine intoxication. Hyperthyroid - Per labs, this is likely primary in etiology - Thyrotropin receptor antibody is pending - Thyroid US finds a heterogeneous and enlarged thyroid. No nodules. CAD - pt has previously diagnosed 2vv disease. It was previously recommended that he have a CABG, however was lost to follow up. - Due to poor compliance, pt is poor candidate for surgery at this time. Recommend outpt follow up with cards Systolic murmur 2/2 severe mitral prolapse - known Mitral valve disease, poor candidate for repair. Cocaine Abuse - CM consult, it has been apprx 3 days since last use Hypercalcemia - resolved Hypomagnesemia - replaced yesterday, check this morning and replace if needed. Microcytic anemia - stable - Fe studies c/w anemia of chronic disease Schizophrenia - on home meds, currently stable and taking PO medication - current plant to go home with sister to help with care and medication complaince HTN - restart home meds HLD - home meds Dispo: currently stable. Length of stay 1-2 days pending rate control on PO meds. <Harshil Edgar - Last Filed: 03/02/18 08:59> Attending Addendum - Attending Addendum Date/Time: 03/02/18 9870 I personally evaluated the patient and discussed the management with Dr. Mcgovern and Dr. Edgar I agree with the History, Examination, Assessment and Plan documented above with any addition or exceptions noted below. Will advance PO CCB. EP cards following. Can transfer out of [facility]. Patient stable. Continue psych meds. Patient much more complaint. Likely Grave's dz complicating all other issues. Will start BB and antithyroid medications. Will discuss longer term goals with POA. Arya <Debra Gill - Last Filed: 03/02/18 11:40>
[2018-03-02] MEDS: Aripiprazole 10 MG TAB PO SCH (09:12)
[2018-03-02] MEDS: OLANZapine 5 MG TAB PO SCH (09:12)
[2018-03-02] MEDS: Furosemide 40 MG TAB PO SCH (09:16)
[2018-03-02] MEDS: Bupropion 100 MG SR TAB PO SCH (09:17)
[2018-03-02] MEDS: Lisinopril 20 MG TAB PO SCH (09:17)
[2018-03-02] MEDS: Potassium Chloride 20 MEQ TAB PO SCH ×3 (09:23→17:41)
[2018-03-02] MEDS: Ferrous Sulfate 325 MG TAB PO SCH ×3 (09:23→20:28)
[2018-03-02] MEDS: Tamsulosin HCl 0.4 MG CAP PO SCH (09:23)
[2018-03-02] MEDS: Magnesium Oxide 400 MG TAB PO SCH (09:24)
[2018-03-02] MEDS: Multivitamin W/ Minerals 1 TAB PO SCH (09:24)
[2018-03-02] MEDS: Aspirin 81 mg Enteric Coated Tablet PO SCH (09:24)
[2018-03-02] MEDS: Folic Acid 1 MG TAB PO SCH (09:24)
--- NOTE | 2018-03-02 12:57 | PRG ---
DATE OF SERVICE: 03/02/2018 Mr. Bradley ventricular response improved. PHYSICAL EXAMINATION: VITAL SIGNS: He has been febrile today. Heart rate 75, blood pressure 120/67. Oximetry is 97. LUNGS: Clear. HEART: Regular rhythm. ABDOMEN: Abdomen is soft. Yesterday's white count was 6.9. Yesterday's electrolytes were unremarkable except for mild hyperchl oremia. He has iron studies suggestive of anemia of chronic disease. His TSH was suppressed and his T4 and T3 levels were elevated. His ultrasound of his thyroid suggest ed were consistent with Graves' disease. IMPRESSION: 1. Hyperthyroidism. 2. Atrial fibrillation with rapid 3. Medical noncompliance. He has a long history of this. 4. Schizophrenia long history of this with noncompliance with follow up with the [facility]. 5. Mild hyperchloremic acidosis. 6. Anemia of chronic disease. It is mild. He has a decreased mean corpuscular volume which may be a component of thalassemia. He really needs regular follow up with [facility] and probably Depo medication for schizophrenia if that is his true diagnosis. His drug use is an issue. Medical noncompliance is an issue, but keeping him in the hospital will no t make him medically compliant. As soon as it can be documented that he is stable on p.o. medication s, his hyperthyroidism and his atrial fibrillation can be treated enterally and then hopefully he marisol l follow up with his physicians at the [facility] or locally. The ideal way to treat his hyperthyroidism would be with radioablation, but this is also fraught with the requirement for compliance with uptake studies, etc. and it is all the nurses can do to keep an IV in him at this point. He is stable to move out of the Intermediate Care Unit in my opinion. Plac ement with family is the next obstacle that needs to be handled. Apparently his family member says s he plans to take him home. She really needs to be spending time up here with him to understand what the dynamics are.
--- NOTE | 2018-03-02 13:53 | PDOC.CTH ---
Addendum entered and electronically signed by Octavia Bennett NP 03/05/18 12: 48: Signing off. If additional EP needs, please do not hesitate to contact us. Thank you Original Note: <Octavia Bennett - Last Filed: 03/02/18 13:47> Cardiology Progress Note - Subjective EP progress note: Patient seen and evaluated. Asleep in bed. Did not waken up during exam or to voice - Objective Vital Signs Temp Pulse Resp BP BP Pulse Ox 03/02/18 11:32 98.0 F 75 24 H 125/64 97 03/02/18 09:17 120/67 03/02/18 08:04 101.0 F H 90 24 H 136/80 99 03/02/18 08:00 101 F H 90 24 H 99 03/02/18 04:00 98.7 F 87 16 133/79 98 Admit Weight 148 lb 2 oz Weight 149 lb 11.2 oz 03/01/18 03/02/18 03/03/18 06:59 06:59 06:59 Intake Total 1480 1520 Output Total 1000 Balance 480 1520 - Physical Examination General/Neuro: NAD Neck: no JVD present Lungs: unlabored respirations Abdomen: NT/ND, soft - Telemetry Telemetry Rhythm: Atrial flutter - Labs Result Diagrams: 03/01/18 04:12 03/01/18 04:12 Troponin/CKMB CK-MB (CK-2) 1.7 ng/mL (0-6.6) 02/27/18 14:16 Troponin I 0.028 ng/mL (< 0.028) 02/27/18 20:43 - Assessment/Plan 1. Atrial flutter with RVR, continue rate control. Poor candidate for anticoagulation and ablation therapy due to non compliance and psychiatric issues. Not a candidate for amiodarone with his significantly abnormal thyroid levels. 2. Polysubstance abuse 3. Schizophrenia 4. Valvular heart disease 5. Cardiomyopathy <Tyrel Fox - Last Filed: 03/05/18 15:41> Cardiology Progress Note - Objective Vital Signs Temp Pulse Resp BP BP Pulse Ox 03/05/18 11:50 98.6 F 72 16 106/69 96 03/05/18 09:17 135/77 03/05/18 07:10 98.8 F 87 16 135/77 94 L 03/05/18 07:05 98.8 F 87 16 03/05/18 04:00 98.5 F 82 16 120/68 96 Admit Weight 148 lb 2 oz Weight 134 lb 03/04/18 03/05/18 03/06/18 06:59 06:59 06:59 Intake Total 760 480 Balance 760 480 - Labs Result Diagrams: 03/01/18 04:12 03/03/18 07:19 Troponin/CKMB CK-MB (CK-2) 1.7 ng/mL (0-6.6) 02/27/18 14:16 Troponin I 0.028 ng/mL (< 0.028) 02/27/18 20:43 Attending Addendum - Attending Addendum Date/Time: 03/05/18 3229 I personally evaluated the patient and discussed the management with Ms Bennett. I agree with the History, Examination, Assessment and Plan documented above with any addition or exceptions noted below.
[2018-03-02] MEDS: Propranolol 40 MG TAB PO SCH ×2 (14:10→20:28)
[2018-03-02] MEDS: Pravastatin Sodium 20 MG TAB PO SCH (20:28)
[2018-03-03] MEDS: Haloperidol Lactate 5 MG/ML VIAL SLOW IVP PRN (02:21)
[2018-03-03 07:50] LABS: Anion Gap 15 mmol/L (10-20); BUN (Urea Nitrogen) 13 mg/dL (8.4-25.7); Calc. Creatinine Clearance 107 mL/min (70-130); Calcium 9.7 mg/dL (7.8-10.44); Carbon Dioxide 23 mmol/L (23-31); Chloride 110 mmol/L (98-107); Estimated GFR-MDRD Greater than 90; Glucose 101 mg/dL (80-115); Magnesium 1.4 mg/dL (1.6-2.6); Potassium 3.5 mmol/L (3.5-5.1); Sodium 144 mmol/L (136-145)
--- NOTE | 2018-03-03 08:01 | PDOC.FM ---
- Subjective Subjective: Mr. Bradley appears very drowsy this morning. Apparently he had an episode of agitation overnight requiring haldol and 2 point soft restraints. HR has been stable overnight since discontinuing the diltiazem drip. - Objective MAR Reviewed: Yes Vital Signs & Weight: Vital Signs (12 hours) Temp Pulse Resp BP Pulse Ox 03/03/18 05:02 98.1 F 87 17 143/81 H 95 Weight Admit Weight 67.188 kg Weight 62.959 kg I&O: 03/02/18 03/03/18 03/04/18 06:59 06:59 06:59 Intake Total 1520 497.7 Output Total 150 Balance 1520 347.7 Result Diagrams: 03/01/18 04:12 03/03/18 07:19 Phys Exam - Physical Examination Constitutional: NAD thryoid palpably enlarged Respiratory: clear to auscultation bilateral Cardiovascular: no significant murmur (irregularly irregular; systolic murmur) Gastrointestinal: soft, non-tender, positive bowel sounds Musculoskeletal: no edema, pulses present Deviation from normal: not orientated to time or place; drowsy appearing Dx/Plan - Plan Plan: 1) Afib/flutter with RVR: Likely 2/2 hyperthyroid state and exacerbated by recent cocaine intoxication. Cont oral CD diltiazem at 180 mg; HR currently stable. Transfer to telemetry as soon as beds are available. EP recommends only medical management. Pt is poor candidate for anticoagulation given noncompliance. Poor candidate for amiodarone given thryoid disease. Cardiology following, appreciate continued recommendations. 2) Suspected Grave's disease: MMA and propranalol started yesterday. Pt is a poor candidate for radiofrequency ablation. Thyrotropin receptor antibody still pending but US c/w diagnosis. 3) 2v CAD: poor candidate for CABG due to noncompliance. 4) Severe mitral prolapse: needs valve replacement but, again, is a poor surgical candidate. 5) Cocaine Abuse: CM has been consulted; pending possible placement with family member. 6) Hypomagnesemia: rechecking Mg level this morning 7) Microcytic anemia: Fe studies show anemia of chronic disease with possible element of thalessemia causing microcytosis 8) Schizophrenia: continue home medications; IV haldol for breakthrough agitation. May need to consider MHMR consult after medically stabilized. 9) HTN: on home medications; propranalol added yesterday. 10) HLD: home statin
[2018-03-03] MEDS: Propranolol 40 MG TAB PO SCH ×3 (09:50→20:42)
[2018-03-03] MEDS: Aripiprazole 10 MG TAB PO SCH (09:50)
[2018-03-03] MEDS: Bupropion 100 MG SR TAB PO SCH (09:50)
[2018-03-03] MEDS: Lisinopril 20 MG TAB PO SCH (09:50)
[2018-03-03] MEDS: Methimazole 5 MG TAB PO SCH (09:50)
[2018-03-03] MEDS: OLANZapine 5 MG TAB PO SCH (09:50)
[2018-03-03] MEDS: Ferrous Sulfate 325 MG TAB PO SCH ×3 (10:13→20:43)
[2018-03-03] MEDS: Furosemide 40 MG TAB PO SCH (10:13)
[2018-03-03] MEDS: Potassium Chloride 20 MEQ TAB PO SCH ×3 (10:13→16:01)
[2018-03-03] MEDS: Folic Acid 1 MG TAB PO SCH (10:13)
[2018-03-03] MEDS: Aspirin 81 mg Enteric Coated Tablet PO SCH (10:13)
[2018-03-03] MEDS: Magnesium Oxide 400 MG TAB PO SCH (10:14)
[2018-03-03] MEDS: Multivitamin W/ Minerals 1 TAB PO SCH (10:14)
[2018-03-03] MEDS: Tamsulosin HCl 0.4 MG CAP PO SCH (10:14)
--- NOTE | 2018-03-03 11:03 | PDOC.CTH ---
Cardiology Progress Note - Subjective Pt somnloent today. Sisters present. Pt received haldol last pm after being combative - Objective Vital Signs Temp Pulse Resp BP BP Pulse Ox 03/03/18 09:50 139/85 03/03/18 07:00 86 22 H 135/72 96 03/03/18 05:02 98.1 F 87 17 143/81 H 95 Admit Weight 148 lb 2 oz Weight 138 lb 12.8 oz 03/02/18 03/03/18 03/04/18 06:59 06:59 06:59 Intake Total 1520 497.7 Output Total 150 Balance 1520 347.7 - Physical Examination General/Neuro: NAD Neck: carotid US brisk, no JVD present Lungs: unlabored respirations Heart: PMI normal, other: (IRR) Abdomen: no HSM, soft Extremities: + femoral B - Labs Result Diagrams: 03/01/18 04:12 03/03/18 07:19 Troponin/CKMB CK-MB (CK-2) 1.7 ng/mL (0-6.6) 02/27/18 14:16 Troponin I 0.028 ng/mL (< 0.028) 02/27/18 20:43 - Assessment/Plan 1. Atrial flutter with RVR, 2. Polysubstance abuse 3. Schizophrenia 4. Valvular heart disease 5. Cardiomyopathy Options limited given non-compliance, medications morgan ACT is not recommended. Family agress with his issues with compliance Rate control. No ACT at this point
[2018-03-03] MEDS ORDERED: Magnesium Sulfate 4 GM in Sodium Chloride 0.9% 250 ML 250 ML IVPB SCH (13:00)
--- NOTE | 2018-03-03 14:46 | PRG ---
DATE OF SERVICE: 03/03/2018 SERVICE: Pulmonary Medicine. INTERVAL HISTORY: The patient is doing fine from a mentation standpoint. He is breathing comfortabl y. He likes to play possum. When I walked in there and was talking to him, he was refusing to do mu ch of anything for me. That being said, with a little bit of stimulation, it was clear that he is wi de awake. He denies any current fevers or chills. There have been no overnight events. PHYSICAL EXAMINATION: VITAL SIGNS: Afebrile, pulse 86, blood pressure 135/72, respirations 22, saturation 98% on room air. GENERAL: The patient is awake, alert, no apparent distress. LUNGS: Excellent air entry. There is no prolonged expiratory phase, wheezing, rhonchi or crackles. HEART: Normal rate. Irregular. ABDOMEN: Soft, nontender, nondistended. Bowel sounds are positive. MUSCULOSKELETAL: No cyanosis or clubbing. No pitting in the bilateral lower extremities. NEUROLOGIC: Grossly nonfocal. LABORATORY DATA: Basic metabolic profile is essentially unremarkable. Magnesium is 1.4 and has been extraordinarily low for several days. TSH is below the assay limit. Blood cultures x2 and urine cu lture negative. ASSESSMENT: 1. Hyperthyroidism. 2. Atrial fibrillation with controlled rate. 3. Schizophrenia. 4. Polysubstance drug abuse. PLAN: The patient is stable for transition out of the IMCU to the telemetry unit. Pulmonary or Crit ical Care will continue to follow along while he remains in this location. That being said, when he lands on the floor, we will only follow intermittently. Ultimately, he needs definitive therapy for his thyroid. He will need to follow up in the outpatient setting with Endocrinology.
[2018-03-03] MEDS: Pravastatin Sodium 20 MG TAB PO SCH (20:43)
[2018-03-04] MEDS ORDERED: CCU Electrolyte Replacement 1 EACH FS SCH (07:23)
[2018-03-04] MEDS ORDERED: Magnesium 2 GM/NS 0.9% 100 ML 2 GM in Premix Bag 1 BAG IVPB PRN (07:34)
[2018-03-04] MEDS ORDERED: Potassium Phosphate 12 MMOL in Sodium Chloride 0.9% 250 ML 250 ML IV PRN (07:34)
[2018-03-04] MEDS ORDERED: Potassium Phosphate 15 MMOL in Sodium Chloride 0.9% 250 ML 250 ML IV PRN (07:34)
[2018-03-04] MEDS ORDERED: Potassium Chloride 40 MEQ in Premix Bag 1 BAG IVPB PRN (07:34)
[2018-03-04] MEDS ORDERED: Magnesium Oxide 400 MG TAB PO PRN ×2 (07:34)
[2018-03-04] MEDS ORDERED: Potassium Chloride 20 MEQ TAB PO PRN (07:34)
[2018-03-04] MEDS ORDERED: Potassium Phosphate 9 MMOL in Sodium Chloride 0.9% 100 ML IVPB PRN (07:34)
[2018-03-04] MEDS ORDERED: CCU ELECTROLYTE REPLACEMENT PROTOCOL FS PRN (07:34)
[2018-03-04] MEDS ORDERED: Potassium Chloride 40 MEQ in Sodium Chloride 0.9% 250 ML 250 ML IVPB PRN (07:34)
--- NOTE | 2018-03-04 09:33 | PDOC.FM ---
- Subjective Subjective: Sleepy this morning. Denies pain. No acute events overnight per staff. Status quo. Plans to call sister who lives in [place] about coming up to the hospital later today. - Objective Vital Signs & Weight: Vital Signs (12 hours) Temp Pulse Resp BP Pulse Ox 03/04/18 04:00 97.4 F L 73 26 H 126/81 97 Weight Admit Weight 67.188 kg Weight 60.691 kg I&O: 03/03/18 03/04/18 03/05/18 06:59 06:59 06:59 Intake Total 497.7 760 Output Total 150 Balance 347.7 760 Result Diagrams: 03/01/18 04:12 03/03/18 07:19 Phys Exam - Physical Examination Constitutional: NAD thyroid mildly enlarged Respiratory: clear to auscultation bilateral Cardiovascular: no rub, irregular (irregularly) late systolic murmur Gastrointestinal: soft, non-tender Musculoskeletal: no edema, pulses present Neurological: non-focal, moves all 4 limbs Dx/Plan - Plan Plan: 1) Afib/flutter with RVR: Likely 2/2 hyperthyroid state and exacerbated by recent cocaine use. HR has remained stable on oral CD diltiazem at 180 mg. EP recommends only medical management. Pt is poor candidate for anticoagulation given noncompliance. Poor candidate for amiodarone given thryoid disease. Cardiology following, appreciate continued recommendations. 2) Suspected Grave's disease: Cont. MMA and propranalol. Pt is a poor candidate for radiofrequency ablation. Thyrotropin receptor antibody still pending but US c/w diagnosis. Will need endocrinology f/u outpt. 3) 2v CAD: poor candidate for CABG due to noncompliance. 4) Severe mitral prolapse: needs valve replacement but, again, is a poor surgical candidate. 5) Cocaine Abuse: CM has been consulted; pending possible placement with family member. 6) Hypomagnesemia: received IV mag yesterday; rechecking Mg level this morning 7) Microcytic anemia: Fe studies show anemia of chronic disease with possible element of thalessemia causing microcytosis 8) Schizophrenia: continue home medications; IV haldol for breakthrough agitation. Will need MHMR f/u outpt. 9) HTN: at goal; cont. home medications; cont. propranalol 10) HLD: home statin Medically stable and ready for discharge; pending safe discharge plan.
[2018-03-04] MEDS: Bupropion 100 MG SR TAB PO SCH (09:40)
[2018-03-04] MEDS: Ferrous Sulfate 325 MG TAB PO SCH ×3 (09:40→21:15)
[2018-03-04] MEDS: Aripiprazole 10 MG TAB PO SCH (09:40)
[2018-03-04] MEDS: Aspirin 81 mg Enteric Coated Tablet PO SCH (09:40)
[2018-03-04] MEDS: Potassium Chloride 20 MEQ TAB PO SCH ×3 (09:40→16:51)
[2018-03-04] MEDS: Methimazole 5 MG TAB PO SCH (09:41)
[2018-03-04] MEDS: Furosemide 40 MG TAB PO SCH (09:41)
[2018-03-04] MEDS: Magnesium Oxide 400 MG TAB PO SCH ×2 (09:41→21:15)
[2018-03-04] MEDS: OLANZapine 5 MG TAB PO SCH (09:41)
[2018-03-04] MEDS: Multivitamin W/ Minerals 1 TAB PO SCH (09:41)
[2018-03-04] MEDS: Lisinopril 20 MG TAB PO SCH (09:41)
[2018-03-04] MEDS: Folic Acid 1 MG TAB PO SCH (09:41)
[2018-03-04] MEDS: Propranolol 40 MG TAB PO SCH ×3 (09:42→21:15)
[2018-03-04] MEDS: Tamsulosin HCl 0.4 MG CAP PO SCH (09:42)
--- NOTE | 2018-03-04 11:20 | PDOC.CTH ---
Cardiology Progress Note - Subjective Patient without complaints. No family present. - Objective Vital Signs Temp Pulse Resp BP Pulse Ox 03/04/18 04:00 97.4 F L 73 26 H 126/81 97 Admit Weight 148 lb 2 oz Weight 133 lb 12.8 oz 03/03/18 03/04/18 03/05/18 06:59 06:59 06:59 Intake Total 497.7 760 Output Total 150 Balance 347.7 760 - Physical Examination General/Neuro: alert & oriented x3 Neck: no JVD present Lungs: CTA Heart: other: (IRR) Abdomen: NT/ND, soft Extremities: other: (No edema) - Telemetry Telemetry Rhythm: AFib - Labs Result Diagrams: 03/01/18 04:12 03/03/18 07:19 Troponin/CKMB CK-MB (CK-2) 1.7 ng/mL (0-6.6) 02/27/18 14:16 Troponin I 0.028 ng/mL (< 0.028) 02/27/18 20:43 - Assessment/Plan 1. Atrial flutter with RVR 2. AFib - ? chronic 3. Polysubstance abuse 4. Schizophrenia 5. MR 6. 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 Hyperthyroidism Improved rate-control on current medications. No antiarrhythmics, ablation option or OAC given history of noncompliance. Poor long-term outlook. If rate remains under good control, ok to start d/c planning any time.
--- NOTE | 2018-03-04 18:27 | ADD-PRG ---
DATE OF SERVICE: 03/03/2018 ADDENDUM Please see the note from Dr. Mcgovern for which I concur. The patient was seen, evaluated, examined and discussed with the residents by bedside. Mr. Bradley is stable right now. Obviously, he has long-t erm issues with psychiatric disease and was altered last night and he is now on 2-point restraints, b ut seems calmer at this point in time, atrial fibrillation with rapid ventricular response. He is no w controlled on p.o. Cardizem and his hyperthyroidism, he is now on methimazole and seems to be doing okay with that and beta kathya, so the plan is to continue current medicines and monitoring him, bu t really it is mostly a placement issue. At this point in time, we will see if we have family that c an take care of him as he has chronic psychiatric issues and sounds like that was pretty much at his baseline. Obviously, the biggest issues on him is polysubstance abuse. We will likely get [facility] to e valuate as well to get their opinion.
--- NOTE | 2018-03-04 18:31 | ADD-CON ---
ADDENDUM Please see the note from Dr. John Paul Mcgovern, which I agree. The patient was seen and evaluated, examin ed and discussed with the residents by bedside. HISTORY OF PRESENT ILLNESS: Really no major changes on Mr. Bradley. His atrial fibrillation with ra pid ventricular response is well controlled on p.o. Cardizem. His hyperthyroidism is controlled now symptomatically on methimazole and the beta blockers and his schizophrenia seems to be at baseline, s o he is really ready to be discharged as long as we have family members who can accept his care and w ill take care of him. The biggest issue with him is noncompliance and confusion, etc with his underl steph psychiatric disease, but it sounds like there are some family members who can take care of him a nd we are trying to get case management to verify that and then he can be discharged in a safe settin g.
[2018-03-04] MEDS: Pravastatin Sodium 20 MG TAB PO SCH (21:15)
[2018-03-05] MEDS ORDERED: Magnesium Sulfate 2 GM in Sodium Chloride 0.9% 100 ML IVPB SCH (06:15)
--- NOTE | 2018-03-05 08:15 | PDOC.FM ---
- Subjective Subjective: 62 yo M admitted for afib/flutter. He has no specific complaints today. He denies chest pain, SOB, dizziness, or peripheral symptoms. There were no acute events over night. Nursing states that he has been taking his meds without issue - Objective MAR Reviewed: Yes Vital Signs & Weight: Vital Signs (12 hours) Temp Pulse Resp BP Pulse Ox 03/05/18 07:10 98.8 F 87 16 135/77 94 L 03/05/18 07:05 98.8 F 87 16 03/05/18 04:00 98.5 F 82 16 120/68 96 Weight Admit Weight 67.188 kg Weight 60.781 kg I&O: 03/04/18 03/05/18 03/06/18 06:59 06:59 06:59 Intake Total 760 480 Balance 760 480 Result Diagrams: 03/01/18 04:12 03/03/18 07:19 EKG Reviewed by me: Yes (Tele strip: afib rate in 80s-90s) <Harshil Edgar - Last Filed: 03/05/18 08:13> - Objective Vital Signs & Weight: Vital Signs (12 hours) Temp Pulse Resp BP BP Pulse Ox 03/05/18 09:17 135/77 03/05/18 07:10 98.8 F 87 16 135/77 94 L 03/05/18 07:05 98.8 F 87 16 03/05/18 04:00 98.5 F 82 16 120/68 96 Weight Admit Weight 67.188 kg Weight 60.781 kg I&O: 03/04/18 03/05/18 03/06/18 06:59 06:59 06:59 Intake Total 760 480 Balance 760 480 Result Diagrams: 03/01/18 04:12 03/03/18 07:19 <Emigdio Lagos - Last Filed: 03/05/18 11:16> Phys Exam - Physical Examination Constitutional: NAD HEENT: moist MMs, sclera anicteric Neck: no JVD, full ROM Respiratory: clear to auscultation bilateral irregularly irregular with systolic murmur loudest over apex Gastrointestinal: soft, non-tender, no distention, positive bowel sounds Musculoskeletal: no edema, pulses present Neurological: non-focal, normal sensation Psychiatric: normal affect, A&O x 3 Skin: no rash <Harshil Edgar - Last Filed: 03/05/18 08:13> Dx/Plan (1) Atrial fibrillation with RVR Code(s): I48.91 - UNSPECIFIED ATRIAL FIBRILLATION Status: Acute (2) Hyperthyroidism Code(s): E05.90 - THYROTOXICOSIS, UNSP WITHOUT THYROTOXIC CRISIS OR STORM Status: Acute (3) Cocaine abuse Code(s): F14.10 - COCAINE ABUSE, UNCOMPLICATED Status: Acute (4) Hypercalcemia Code(s): E83.52 - HYPERCALCEMIA Status: Acute (5) Hyperlipidemia Code(s): E78.5 - HYPERLIPIDEMIA, UNSPECIFIED Status: Acute (6) Hypertension Code(s): I10 - ESSENTIAL (PRIMARY) HYPERTENSION Status: Acute (7) Hypomagnesemia Code(s): E83.42 - HYPOMAGNESEMIA Status: Acute (8) Low TSH level Code(s): R79.89 - OTHER SPECIFIED ABNORMAL FINDINGS OF BLOOD CHEMISTRY Status : Acute (9) Microcytosis Code(s): R71.8 - OTHER ABNORMALITY OF RED BLOOD CELLS Status: Acute (10) Schizophrenia Code(s): F20.9 - SCHIZOPHRENIA, UNSPECIFIED Status: Acute (11) Tobacco abuse Code(s): Z72.0 - TOBACCO USE Status: Acute (12) Systolic murmur Code(s): R01.1 - CARDIAC MURMUR, UNSPECIFIED Status: Acute (13) CAD (coronary artery disease) Code(s): I25.10 - ATHSCL HEART DISEASE OF [place] CORONARY ARTERY W/O ANG PCTRS Status: Acute (14) Mitral regurgitation Status: Chronic - Plan Plan: Afib/flutter with RVR - Likely 2/2 hyperthyroid state and exacerbated by recent cocaine use. - HR has remained stable on oral CD diltiazem at 180 mg. EP recommends only medical management. - Poor candidate for anticoagulation dt noncompliance. - Poor candidate for amio given thyroid disease and noncompliance. - Cardiology is following Hyperthyroid - Hx and thyroid US c/w Graves, however thyrotropin receptor antibody negative. - Follow currently on MMA and propranalol - will need out pt follow up for continued management and radioactive iodine uptake study for further evaluation of etiology. CAD - poor candidate for CABG due to noncompliance. - continue statin Severe mitral prolapse - needs valve replacement, however poor surgical candidate - follow up with cardiology outpt Cocaine Abuse - Per family whenever he goes off of his meds he starts using cocaine. This likely exacerbated the afib/flutter w/RVR. CM has been consulted; pending possible placement with family member. - Pt back on psych meds Hypomagnesemia - 1.5 this am, will replace IV - On scheduled PO Mg - Rechecking Mg in am - unclear etiology of persistently low level. Will need further evaluation in out patient setting with PCP Microcytic anemia - Fe studies show anemia of chronic disease Schizophrenia - continue home medications - IV haldol for agitation - follow up with [facility] out patient HTN - Controlled, continue home meds HLD - home statin Dispo Pt is stable for discharge, will hopefully go home today with in sister's care. Otherwise it would be unsafe to dc as pt cannot take care of himself. <Harshil Edgar - Last Filed: 03/05/18 08:13> Attending Addendum - Attending Addendum Date/Time: 03/05/18 1114 I personally evaluated the patient and discussed the management with Dr. Edgar I agree with the History, Examination, Assessment and Plan documented above with any addition or exceptions noted below.Heart rate control with po rx patient will need further outpatient evaluation and treatment options for hyperthyroidism. History of non compliance and not candidate for VTE prophylaxis at this time. <Emigdio Lagos - Last Filed: 03/05/18 11:16>
[2018-03-05] MEDS: Furosemide 40 MG TAB PO SCH (09:16)
[2018-03-05] MEDS: Potassium Chloride 20 MEQ TAB PO SCH ×2 (09:16→11:34)
[2018-03-05] MEDS: Propranolol 40 MG TAB PO SCH ×2 (09:16→15:33)
[2018-03-05] MEDS: Ferrous Sulfate 325 MG TAB PO SCH ×2 (09:16→15:33)
[2018-03-05] MEDS: Bupropion 100 MG SR TAB PO SCH (09:17)
[2018-03-05] MEDS: Aripiprazole 10 MG TAB PO SCH (09:17)
[2018-03-05] MEDS: Lisinopril 20 MG TAB PO SCH (09:17)
[2018-03-05] MEDS: Folic Acid 1 MG TAB PO SCH (09:17)
[2018-03-05] MEDS: Multivitamin W/ Minerals 1 TAB PO SCH (09:17)
[2018-03-05] MEDS: Tamsulosin HCl 0.4 MG CAP PO SCH (09:17)
[2018-03-05] MEDS: Aspirin 81 mg Enteric Coated Tablet PO SCH (09:17)
[2018-03-05] MEDS: Magnesium Oxide 400 MG TAB PO SCH (09:17)
[2018-03-05] MEDS: OLANZapine 5 MG TAB PO SCH (09:19)
[2018-03-05] MEDS: Methimazole 5 MG TAB PO SCH (09:19)
[2018-03-05 14:05] VITALS: BMI 17.2
[2018-03-05 15:51] VITALS: TEMP 98.1
[2018-03-05 16:09] VITALS: BP 121/71
--- NOTE | 2018-03-06 11:55 | DIS-2 ---
DATE OF ADMISSION: 02/27/2018 DATE OF DISCHARGE: 03/05/2018 ADMITTING ATTENDING: Josue Morris M.D. DISCHARGE ATTENDING: Emigdio Lagos M.D. RESIDENT: Harshil Edgar D.O. CONSULTATIONS: Cardiology, Dr. Willy Prado; Pulmonology, Dr. Brandon Hyman and Electrophysiology, Dr. Tyrel Fox. PROCEDURES: 1. Chest x-ray on 02/27/2018, finding borderline heart size, no acute process. 2. Thyroid ultrasound 03/01/2018; finding a heterogeneous and enlarged thyroid gland with an isthmus measuring 7 mm in the AP dimension, the right lobe measuring 4.2 x 2.2 x 1.4. The left lobe measuring 3.7 x 1.1 x 1.9. No thyroid nodules identified. DISCHARGE MEDICATIONS: Methocarbamol 500 mg p.o. t.i.d. p.r.n., Albuterol sulfate 2 puffs inhaled q.4h. p.r.n. shortness of breath, bupropion 100 mg p.o. daily, hydroxyzine 50 mg p.o. t.i.d. p.r.n. for anxiety, Pravastatin 20 mg p.o. at bedtime, lisinopril 20 mg p.o. daily, potassium chloride 20 mEq p.o. t.i.d., aripiprazole 0.5 mg p.o. daily, Viagra 100 mg p.o. daily p.r.n., erectile dysfunction, olanzapine 10 mg p.o. daily, Protonix 40 mg p.o. daily, tamsulosin 0.4 mg p.o. daily, ferrous sulfate 325 mg p.o. t.i.d., Lasix 40 mg tablet 1.5 tablets p.o. daily, aspirin 81 mg p.o. daily, diltiazem 180 mg p.o. daily, folic acid 1 mg p.o. daily, methimazole 5 mg p.o. daily, multivitamin, Theragran 1 tab p.o. daily and propranolol 40 mg p.o. t.i.d. DISCONTINUED MEDICATIONS: None. HOSPITAL COURSE: This is a 62-year-old male who presented in the emergency room after cocaine use the previous day. Upon presentation, the patient was found to be argumentative and would not communicate. It was unclear exactly what had been going on. The patient was found to be in atrial fibrillation with RVR. It was difficult to ascertain additional history from the patient. The family however was able to tell the emergency room that the patient is typically on antipsychotics and he had been off of his medications. When in the emergency room, the patient received a total of 5 mg of Ativan due to the heart rate reaching as high as a 270s. The patient was electrical cardioverted and then put on a diltiazem drip at 10 mg per hour. The following day, the patient remained very difficult to communicate with. If he would wake up he would not answer questions and was alert and oriented x0. The patient's heart rate was controlled with a Cardizem drip typically in the 90s. The patient continued to be agitated and combative, which was controlled with IM Haldol. It was very difficult to maintain IV access of the patient as he would typically wake up and pull at his lines. The following day after discussion with family we were able to better determine the patient's typical medication list which include multiple antipsychotics that we were previously unaware of, though it was difficult to get the patient to actually take p.o. medications over the course of the subsequent 48 hours. The patient did begin to return to a more baseline mental status with consistent antipsychotics and during that period, he did begin to take his p.o. medication. Additionally, the second day of hospitalization after consultation with Cardiology, discussion was had with Dr. Prado. The patient had been previously seen in the outpatient setting by Dr. Cottrell. He did have a previous cath which showed significant 2 vessel disease. Additionally, it showed a significant mitral valve disease. At that time, it was recommended that the patient be seen for bypass and possible mitral placement; however, the patient was lost to follow up. It was therefore determined after continuing evaluation that the patient was a poor candidate for surgical intervention due to the patient's poor compliance and instead the best course of action would be to attempt to medically control the patient's rate. It was also determined the patient was a very poor anticoagulation candidate due to the fact that he was not compliant with his medications and was a high fall risk due to his on and off drug use and his deconditioned status. Over the course of the next 2 days while the patient remained in the [facility] on a Cardizem drip, he was slowly able to be transitioned off of the drip and onto p.o. Cardizem. During this time, he was also evaluated by electrophysiology, Dr. Fox. It was determined that he was a poor candidate for any form of EP intervention and that he should be medically rate controlled. By the evening the patient was able to be transitioned from [facility] to telemetry on p.o. medications and off Cardizem drip. Additionally, at that time he was taking all of his p.o. antipsychotic medications and was alert and oriented x3, was much more cooperative with his care. It was determined at that time that the patient, instead of going home, where he typically goes off of his meds and self -medicates with cocaine that he would go home to [place] with his sister where he will be better to be able to monitor. Additionally, the patient was found to be hyperthyroid during this admission. This is a new diagnosis. The patient was started on propranolol and Thiamazole for medical management of his hyperthyroid. It was recommended to the patient and his sister that he follow up in the outpatient setting as the patient is [facility] for definitive diagnosis and treatment. While admitted, a thyrotropin receptor antigen was negative, though the ultrasound was concerning for Graves. It was recommended in the outpatient setting to the patient whether it be his PCP or Endocrinology consider a radioactive iodine uptake study for better characterization of this patient's hyperthyroidism. The patient was also found to be severely physically deconditioned and the recommendation was for the patient to go to an inpatient physical therapy or to go to inpatient rehab for physical therapy, however, due to the patient's [facility], he is not able to go directly there. The patient was discharged home with the recommendation that he follow up immediately with his PCP for evaluation for inpatient physical therapy. Regarding the patient's schizophrenia by the time of discharge, the patient was well controlled on his existing medical regimen as prescribed by his physician at the [place]. The issue is going to be getting him to continually take his medications. I believe that by sending him home with his sister rather than back to his previous home, there is much higher likelihood of his continued compliance with the medications. DISPOSITION: Stable. DISCHARGE INSTRUCTIONS: 1. Location: Home with sister. 2. Diet: Heart healthy. 3. Activity: Ad belgica. 4. Followup: [facility]. THANH
== END 2018-03-05 16:24 | disposition home or self-care (01) | DRG 310 ==
LOC: ERS 13:39 → IMCU/EMU 19:23 → 2NO 03-03 15:20
PROVIDERS: ADMIT Family Medicine; ATTEND Family Medicine
PROC: 5A2204Z Restoration of Cardiac Rhythm, Single (ICD-10-PCS; principal; 2018-02-27)
DX: I48.92 Unspecified atrial flutter (principal); E05.00 Thyrotoxicosis with diffuse goiter without thyrotoxic crisis or storm; I42.9 Cardiomyopathy, unspecified; I48.91 Unspecified atrial fibrillation; F20.9 Schizophrenia, unspecified; F14.10 Cocaine abuse, uncomplicated; E83.52 Hypercalcemia; I10 Essential (primary) hypertension; E83.42 Hypomagnesemia; F17.210 Nicotine dependence, cigarettes, uncomplicated; R01.1 Cardiac murmur, unspecified; I25.10 Atherosclerotic heart disease of native coronary artery without angina pectoris; I34.0 Nonrheumatic mitral (valve) insufficiency; D50.9 Iron deficiency anemia, unspecified; E78.5 Hyperlipidemia, unspecified; R45.1 Restlessness and agitation; Z78.1 Physical restraint status
CPT/HCPCS: 36415; 71045; 76536; 80048; 80053; 80061; 80306; 81003; 82340; 82553; 82728; 83540; 83550; 83690; 83735; 84100; 84238; 84439; 84443; 84481; 84484; 85025; 85610; 85730; 87040; 87086; 93005; 94640; A4216; G8978-GP-CL; G8979-GP-CJ; G8996-GN-CL; G8997-GN-CI; J0131; J1160; J1630; J1650; J2060; J3411; J3475; J7050; J7611